=== PATIENT | male | born 1955 | race Hispanic/Latino ===

== ENCOUNTER 2017-08-18 04:27 | Observation (INO) | payer BC ==
[2017-08-18 04:48] VITALS: BMI 32.7
[2017-08-18] MEDS ORDERED: Morphine 4 mg/ml ISec IVP STA ×2 (05:10→08:26)
[2017-08-18] MEDS ORDERED: Sodium Chloride 0.9% 1,000 ML IV STA (05:12)
--- NOTE | 2017-08-18 05:49 | ED PDOC ---
Arrival/HPI - General Historian: Patient - History of Present Illness Time/Duration: 24 hours Symptom Onset: Gradual Symptom Course: Unchanged Activities at Onset: Light Context: Home <Vince Garcia - Last Filed: 08/18/17 06:20> <Jim Sneed - Last Filed: 08/18/17 08:47> - General Chief Complaint: Abdominal Pain Time Seen by Provider: 08/18/17 05:06 - History of Present Illness Narrative History of Present Illness (Text): 08/18/17 05:40 62 year old male, whose past medical history includes pacemaker, hypertension, diabetes, hyperlipidemia, prostate cancer, recurrent pacemaker, and left kidney tumor removal, presents to the emergency department complaining of worsening back pain and abdominal pain. Patient reports he went to see Dr. Motta yesterday after having both back pain and abdominal pain. He was given a prescription for a CT of the abdomen to r/o obstruction. Patient also reports he has not been passing any flatulence. Patient denies any fever, chills, chest pain, shortness of breath, nausea, vomiting, diarrhea, urinary symptoms, back pain, neck pain, headache, dizziness, trauma/injury, suicidal/homicidal ideation or any other complaints. PMD: Dr. Motta Urologist: Dr. Wolfe (Vince Garcia) Past Medical History - Provider Review Nursing Documentation Reviewed: Yes - Cardiac Hx Cardiac Disorders: No Hx Pacemaker: Yes (2011) - Pulmonary Hx Respiratory Disorders: No - Neurological Hx Neurological Disorder: No - HEENT Hx HEENT Disorder: No - Renal Hx Renal Disorder: No - Endocrine/Metabolic Hx Diabetes Mellitus Type 2: Yes - Hematological/Oncological Hx Blood Disorders: No - Integumentary Hx Dermatological Disorder: No - Musculoskeletal/Rheumatological Hx Musculoskeletal Disorders: No - Gastrointestinal Hx Gastrointestinal Disorders: No - Genitourinary/Gynecological Hx Prostate Cancer: Yes - Psychiatric Hx Anxiety: Yes Hx Substance Use: No - Surgical History Hx Open Heart Surgery: Yes (pacemaker 2011) Hx Orthopedic Surgery: Yes (broken rt arm) Other/Comment: tumor left kidney <Vince Garcia - Last Filed: 08/18/17 06:20> Family/Social History - Physician Review Nursing Documentation Reviewed: Yes Family/Social History: No Known Family HX Smoking Status: Never Smoked Hx Alcohol Use: No Hx Substance Use: No <Vince Garcia - Last Filed: 08/18/17 06:20> Allergies/Home Meds <RadhaVince - Last Filed: 08/18/17 06:20> <Jim Sneed - Last Filed: 08/18/17 08:47> Allergies/Adverse Reactions: Allergies Penicillins Allergy (Verified 08/18/17 04:47) ANAPHYLAXIS Home Medications: Home Meds Medication Instructions Recorded Confirmed Aspirin [Ecotrin] 81 mg PO DAILY 08/18/17 08/18/17 Bisoprolol/HCTZ [Ziac 5 MG-6.25 MG] 1 tab PO DAILY 08/18/17 08/18/17 Hydrochlorothiazide [Microzide] 25 mg PO DAILY 08/18/17 08/18/17 Lisinopril [Zestril] 40 mg PO DAILY 08/18/17 08/18/17 Metformin HCl [Glucophage] 500 mg PO BID 08/18/17 08/18/17 Pantoprazole Sodium [Protonix] 40 mg PO DAILY 08/18/17 08/18/17 Review of Systems - Physician Review All systems were reviewed & negative as marked: Yes - Review of Systems Constitutional: absent: Fevers, Other (Chills) Respiratory: absent: SOB Cardiovascular: absent: Chest Pain Gastrointestinal: Abdominal Pain, Other (not passing any flatulence ). absent: Diarrhea, Nausea, Vomiting Genitourinary Male: absent: Dysuria, Frequency, Hematuria Musculoskeletal: Back Pain Neurological: absent: Headache, Dizziness <RadhaVince - Last Filed: 08/18/17 06:20> Physical Exam Vital Signs Reviewed: Yes Temperature: Afebrile Blood Pressure: Hypertensive Pulse: Regular Respiratory Rate: Normal Appearance: Positive for: Well-Appearing, Non-Toxic, Comfortable Pain Distress: None Mental Status: Positive for: Alert and Oriented X 3 - Systems Exam Head: Present: Atraumatic, Normocephalic Pupils: Present: PERRL Extroacular Muscles: Present: EOMI Conjunctiva: Present: Normal Mouth: Present: Moist Mucous Membranes Neck: Present: Normal Range of Motion Respiratory/Chest: Present: Clear to Auscultation, Good Air Exchange. No: Respiratory Distress, Accessory Muscle Use Cardiovascular: Present: Regular Rate and Rhythm, Normal S1, S2. No: Murmurs Abdomen: Present: Tenderness (Diffusely tender), Distention (Minimal ), Other ( Abdominal Bruites). No: Peritoneal Signs, Mass/Organomegaly Back: Present: Normal Inspection Upper Extremity: Present: Normal Inspection. No: Cyanosis, Edema Lower Extremity: Present: Normal Inspection, NORMAL PULSES (Signs of femoral pulses both sides). No: Edema Neurological: Present: GCS=15, CN II-XII Intact, Speech Normal Skin: Present: Warm, Dry, Normal Color. No: Rashes Psychiatric: Present: Alert, Oriented x 3, Normal Insight, Normal Concentration <Vince Garcia - Last Filed: 08/18/17 06:20> Vital Signs Temp Pulse Resp BP Pulse Ox 08/18/17 07:54 65 18 146/85 99 08/18/17 05:37 98.7 F 08/18/17 04:54 65 24 180/105 H 100 Medical Decision Making - Lab Interpretations I have reviewed the lab results: Yes - EKG Interpretation Interpreted by ED Physician: Yes Type: 12 lead EKG <Vince Garcia - Last Filed: 08/18/17 06:20> <Jim Sneed - Last Filed: 08/18/17 08:47> ED Course and Treatment: 08/18/17 05:50 Impression: 62 year old male presents complaining of worsening back pain and abdominal pain associated with no flatulence. Differential Diagnosis included but are not limited to: AAA Plan: -- CT Angio Chest/abdomen -- EKG -- Labs -- Morphine, IV Fluids, Toradol, Zofran inj -- Urine Culture -- Urinalysis -- Reassess and disposition Progress Notes: 08/18/17 05:55 EKG shows Pacemaker at 65 BPM with Normal axis. Normal Intervals. Normal EKG. Interpreted by me. (Vince Garcia) 08/18/17 07:43 Turned over to me by waiting for CT scan. Patient reports that he was awoken from sleep at approximately 2 AM 30 hours ago with severe back pain. The pain radiated into his left groin. He is no longer having back pain. He states the pain is now in his abdomen. He was seen by the PMD and given a CT scan prescription. Patient appears to have left sided renal colic. Waiting for urine and CT results. CT Angiography Abdomen and Pelvis With Intravenous Contrast IMPRESSION: Mild to moderate left hydronephrosis. There is a 15 mm stone in the renal pelvis at the UPJ. There is left renal cortical scarring. Correlate with prior studies. Dictated and Authenticated by: Sammy Catalan MD 08/18/2017 8:03 AM Eastern Time ([place] & [place]) CT Angiography Chest With Intravenous Contrast IMPRESSION: No acute findings. Dictated and Authenticated by: Sammy Catalan MD 08/18/2017 8:03 AM Eastern Time ([place] & [place]) 08/18/17 08:[address] Juan Motta, who agree and accepts patient to be admitted and wants Dr. Wolfe on consult. 08/18/17 08:46 Discussed with , who will see in consult. (Jim Sneed) - Lab Interpretations Lab Results: 08/18/17 05:00 08/18/17 05:00 Lab Results 08/18/17 08:13: Urine Color Yellow, Urine Appearance Turbid, Urine pH 5.5, Ur Specific Alexander 1.010, Urine Protein 30 H, Urine Glucose (UA) Negative, Urine Ketones Negative, Urine Blood Large H, Urine Nitrate Negative, Urine Bilirubin Negative, Urine Urobilinogen 0.2, Ur Leukocyte Esterase Negative, Urine RBC Tntc , Urine WBC 5 - 10, Ur Epithelial Cells 4 - 5, Urine Bacteria Mod 08/18/17 05:00: Sodium 142, Potassium 4.0, Chloride 100, Carbon Dioxide 29, Anion Gap 17, BUN 30 H, Creatinine 1.1, Est GFR ( Amer) > 60, Est GFR ( Non-Af Amer) > 60, Random Glucose 193 H, Calcium 10.0, Total Bilirubin 0.7, AST 29, ALT 41, Alkaline Phosphatase 91, Lactate Dehydrogenase 511, Total Creatine Kinase 45, Troponin I 0.01, Total Protein 7.8, Albumin 4.3, Globulin 3.5, Albumin/Globulin Ratio 1.2 08/18/17 05:00: PT 11.7, INR 1.02 08/18/17 05:00: WBC 10.7, RBC 4.56, Hgb 13.9 L, Hct 39.4 L, MCV 86.4, MCH 30.5, MCHC 35.3, RDW 12.9, Plt Count 185, MPV 10.8, Gran % 81.2 H, Lymph % (Auto) 13.7 L, [place] % (Auto) 3.7, Eos % (Auto) 1.3 L, Baso % (Auto) 0.1, Gran # 8.68 H , Lymph # (Auto) 1.5, [place] # (Auto) 0.4, Eos # (Auto) 0.1, Baso # (Auto) 0.01 - RAD Interpretation Radiology Orders: 08/18/17 05:08 ANGIO CHEST/ABDOMEN/PELVIS [CT] Stat - Medication Orders Current Medication Orders: Discontinued Medications Sodium Chloride (Sodium Chloride 0.9%) 1,000 mls @ 999 mls/hr IV .Q1H1M STA Stop: 08/18/17 06:12 Last Admin: 08/18/17 05:00 Dose: 999 mls/hr eMAR Start Stop Document 08/18/17 05:00 RD (Rec: 08/18/17 05:25 RD [id number]) Intravenous Solution Start Date 08/18/17 Start Time 05:00 End Date 08/18/17 End time 06:00 Total Infusion Time 60 Ketorolac Tromethamine (Toradol) 30 mg IVP STAT STA Stop: 08/18/17 05:11 Last Admin: 08/18/17 05:22 Dose: 30 mg MAR Pain Assessment Document 08/18/17 05:22 RD (Rec: 08/18/17 05:26 RD [id number]) Pain Reassessment Is this a pain reassessment? No Sleep Is patient sleeping during reassessment? No Presence of Pain Presence of Pain Yes Description Pain Behavior Moaning Guarding Irritability Facial Grimacing IVP Administration Document 08/18/17 05:22 RD (Rec: 08/18/17 05:26 RD [id number]) Charges for Administration # of IVP Administrations 1 Morphine Sulfate (Morphine) 4 mg IVP STAT STA Stop: 08/18/17 05:11 Last Admin: 08/18/17 05:26 Dose: 4 mg MAR Pain Assessment Document 08/18/17 05:26 RD (Rec: 08/18/17 05:26 RD [id number]) Pain Reassessment Is this a pain reassessment? No Sleep Is patient sleeping during reassessment? No Presence of Pain Presence of Pain Yes Description Pain Behavior Moaning Crying Irritability Facial Grimacing IVP Administration Document 08/18/17 05:26 RD (Rec: 08/18/17 05:26 RD [id number]) Charges for Administration # of IVP Administrations 1 Morphine Sulfate (Morphine) 4 mg IVP STAT STA Stop: 08/18/17 08:27 Ondansetron HCl (Zofran Inj) 4 mg IVP STAT STA Stop: 08/18/17 05:11 Last Admin: 08/18/17 05:10 Dose: 4 mg IVP Administration Document 08/18/17 05:10 RD (Rec: 08/18/17 05:25 RD [id number]) Charges for Administration # of IVP Administrations 1 Ondansetron HCl (Zofran Inj) 4 mg IVP ONCE ONE Stop: 08/18/17 08:27 - Scribe Statement The provider has reviewed the documentation as recorded by the Scribe <Vince Garcia - Last Filed: 08/18/17 06:20> <Jim Sneed - Last Filed: 08/18/17 08:47> - Scribe Statement Rip Avalos Provider Scribe Attestation: All medical record entries made by the Scribe were at my direction and personally dictated by me. I have reviewed the chart and agree that the record accurately reflects my personal performance of the history, physical exam, medical decision making, and the department course for this patient. I have also personally directed, reviewed, and agree with the discharge instructions and disposition. (Vince Garcia) Disposition/Present on Arrival - Present on Arrival History of DVT/PE: No History of Uncontrolled Diabetes: No Urinary Catheter: No History of Decub. Ulcer: No History Surgical Site Infection Following: None <Vince Garcia - Last Filed: 08/18/17 06:20> - Present on Arrival Any Indicators Present on Arrival: No History of DVT/PE: No History of Uncontrolled Diabetes: No Urinary Catheter: No History of Decub. Ulcer: No - Disposition Have Diagnosis and Disposition been Completed?: Yes Disposition Time: 08:25 Patient Plan: Observation <Jim Sneed - Last Filed: 08/18/17 08:47> - Disposition Diagnosis: Nephrolithiasis, Hydronephrosis, Renal colic on left side Disposition: HOSPITALIZED Patient Problems: Current Active Problems Problem Status Onset Hydronephrosis Acute Nephrolithiasis Acute Renal colic on left side Acute Condition: FAIR
[2017-08-18 06:03] LABS: BASO # 0.01 K/mm3 (0.0-2.0); BASO % 0.1 % (0.0-3.0); EOS # 0.1 (0.0-0.7); EOS % 1.3 % (1.5-5.0); GRAN # 8.68 (1.4-6.5); GRAN % 81.2 % (50.0-68.0); HEMOGLOBIN 13.9 g/dL (14.0-18.0); LYMPH # 1.5 (1.2-3.4); LYMPH % 13.7 % (22.0-35.0); MEAN CELL VOLUME 86.4 fl (80.0-105.0); MEAN CORPUSCULAR HEMOGLOBIN 30.5 pg (25.0-35.0); MEAN CORPUSCULAR HGB CONC 35.3 g/dl (31.0-37.0); MEAN PLATELET VOLUME 10.8 fl (7.0-11.0); MONO # 0.4 (0.1-0.6); MONO % 3.7 % (1.0-6.0); RBC 4.56 10^6/uL (3.5-6.1); RED CELL DISTRIBUTION WIDTH 12.9 % (11.5-14.5); WHITE BLOOD COUNT 10.7 10^3/ul (4.5-11.0)
[2017-08-18 06:06] LABS: ALB/GLOB RATIO 1.2 (1.1-1.8); ALBUMIN 4.3 g/dL (3.0-4.8); ALT/SGPT 41 U/L (7-56); AST/SGOT 29 U/L (17-59); BLOOD UREA NITROGEN 30 mg/dL (7-21); GFR AFRICAN-AMERICAN > 60; GFR NON-AFRICAN AMERICAN > 60
[2017-08-18 06:13] LABS: INR 1.02 (0.93-1.08); PROTHROMBIN TIME 11.7 SECONDS (9.4-12.5)
[2017-08-18 06:24] LABS: TROPONIN I 0.01 ng/mL
[2017-08-18 08:24] LABS: PH,URINE 5.5 (4.7-8.0); URINE BILIRUBIN NEGATIVE (NEGATIVE); URINE BLOOD LARGE (NEGATIVE); URINE GLUCOSE (UA) NEGATIVE (NEGATIVE); URINE LEUKOCYTE ESTERASE NEGATIVE Leu/uL (NEGATIVE); URINE PROTEIN 30 mg/dL (<30 mg/dL); URINE UROBILINOGEN 0.2 E.U./dL (<1 E.U./dL)
[2017-08-18 08:27] LABS: URINE APPEARANCE TURBID (CLEAR); URINE COLOR YELLOW (YELLOW)
[2017-08-18 08:38] LABS: URINE RBC TNTC /hpf (0-2)
[2017-08-18 08:39] LABS: URINE BACTERIA MOD (NEG)
--- NOTE | 2017-08-18 09:44 | CT ---
PROCEDURE: CT Chest, Abdomen and Pelvis with intravenous contrast HISTORY: Abdominal Aortic Aneurysm COMPARISON: 07/19/2015 TECHNIQUE: IV dose administered: 150 cc of Omni 350 Radiation dose: Total exam DLP = 1629 mGy-cm. This CT exam was performed using one or more of the following dose reduction techniques: Automated exposure control, adjustment of the mA and/or kV according to patient size, and/or use of iterative reconstruction technique. FINDINGS: CT CHEST WITH CONTRAST: LUNGS: Clear. No nodule, mass or consolidation. MEDIASTINUM: Unremarkable. Normal caliber aorta and pulmonary arterial trunk. No aortic dissection. Normal size heart. LYMPH NODES: Unremarkable. PLEURA: Unremarkable. No pneumothorax. No pleural fluid. BONES: Unremarkable. OTHER FINDINGS: None. CT ABDOMEN AND PELVIS: LIVER: Unremarkable. No gross lesion or ductal dilatation. GALLBLADDER AND BILE DUCTS: Unremarkable. PANCREAS: Unremarkable. No gross lesion or ductal dilatation. SPLEEN: Unremarkable. ADRENALS: Unremarkable. No mass. KIDNEYS AND URETERS: There is a large 13 x 15 mm stone in the left renal pelvis producing obstruction at the UPJ. There is mild hydronephrosis. This stone was previously seen in the lower pole of the left kidney and has now migrated. VASCULATURE: Unremarkable. No aortic aneurysm. BOWEL: Unremarkable. No obstruction. No gross mural thickening. APPENDIX: Normal appendix. PERITONEUM: Unremarkable. No free fluid. No free air. LYMPH NODES: Unremarkable. No enlarged lymph nodes. BLADDER: Unremarkable. REPRODUCTIVE: Unremarkable. BONES: No acute fracture. OTHER FINDINGS: None. IMPRESSION: There is a large 13 x 15 mm stone in the left renal pelvis producing obstruction at the UPJ. There is mild hydronephrosis. This stone was previously seen in the lower pole of the left kidney and has now migrated.
--- NOTE | 2017-08-18 10:40 | HP ---
HISTORY OF PRESENT ILLNESS: The patient is a 62 year old man a past medical history of prostate cancer s/p radiation therapy s/p hormonal therapy, history of renal cell carcinoma s/p left partial nephrectomy and BPH who presented for evaluation of a several day history of progressively worsening lower abdominal discomfort and left renal colic. The patient was evaluated in his PMD's office the day prior to presentation to the ED for the aforementioned symptoms and was given a prescription for a CT of the abdomen and pelvis. The patient was planning to go the following day but given worsening symptoms he presented to the ED. Upon arrival to the ED he was noted to be in moderate distress secondary to left flank pain but was otherwise afebrile and hemodynamically stable. He underwent a CT of the abdomen and pelvis which demonstrated mild to moderate left hydronephrosis with a 15 mm stone in the renal pelvis at the UPJ. Given the size of the stone he was advised that he would likely require a urologic intervention and was subsequently admitted for management of nephrolithiasis. PAST MEDICAL HISTORY: As per HPI, also, hypertension, hyperlipidemia, T2DM, GERD and sick sinus syndrome s/p pacemaker placement. PAST SURGICAL HISTORY: As per HPI. MEDICATIONS: Bisoprolol/HCTZ 10/6.25 mg p.o. daily, HCTZ 25 mg p.o. daily, Lisinopril 40 mg p.o. daily, Protonix 40 mg p.o. daily, Aspirin 81 mg p.o. daily and Metformin 500 mg p.o. b.i.d. ALLERGIES: PENICILLIN. FAMILY HISTORY: Noncontributory. SOCIAL HISTORY: The patient denies any history of smoking or illicit drug abuse. He reports social alcohol use. REVIEW OF SYSTEMS: A 14-point review of systems is negative except as per HPI. PHYSICAL EXAMINATION: VITAL SIGNS: Temperature 98.7, pulse 66, blood pressure 120/77, respiratory rate 18, oxygen saturation 98% on room air. GENERAL: Mild distress secondary to left flank pain. HEENT: PERRL, EOMI. No scleral icterus. No conjunctival pallor. NECK: Supple. Full range of motion. No JVD. No bruits. LUNGS: Clear to auscultation. CARDIOVASCULAR: Regular rate and rhythm. Normal S1 and S2. ABDOMEN: Normoactive bowel sounds. Soft, nontender and nondistended. Left flank pain is noted. EXTREMITIES: No edema. NEUROLOGIC: Awake, alert and oriented x 3. No focal motor deficits. LABORATORY DATA: WBC 10.7, hemoglobin 14, hematocrit 39, platelets 185. Chemistry reviewed and unremarkable. Urinalysis demonstrates large blood. IMAGING STUDIES: CT of the abdomen and pelvis demonstrates mild to moderate left hydronephrosis with a 15 mm stone in the renal pelvis at the UPJ. ASSESSMENT: The patient is a 62 year old man with multiple medical comorbidities who presented for evaluation of a several day history of progressively worsening lower abdominal and left flank pain who was found to have a 15 mm left-sided kidney stone and who was admitted for management of nephrolithiasis. PLAN: 1. Nephrolithiasis. CT imaging reviewed. Dr. Wolfe of Urology has been consulted for further evaluation and recommendations. Continue with Morphine 4 mg IV q. 6 hours as needed for pain and Zofran 4 mg IV q. 8 hours p.r.n. nausea. 2. Hypertension. Resume home medications. 3. Hyperlipidemia. The patient is off statins and is diet controlled. 4. Type 2 diabetes mellitus. Resume Metformin 500 mg p.o. b.i.d. Continue to monitor fingersticks before every meal and at bedtime. 5. Sick sinus syndrome s/p pacemaker placement. 6. GERD. Resume Protonix 40 mg p.o. daily. 7. History of prostate cancer. 8. History of renal cell carcinoma. 9. Prophylaxis. The patient is on Protonix for his underlying GERD. DVT prophylaxis is not indicated as the patient is ambulatory. CODE STATUS: Full code. Juan Motta MD MARTHA
[2017-08-18] MEDS: Pantoprazole 40 mg EC Tab PO SCH (11:12)
[2017-08-18] MEDS ORDERED: Pneumococcal 23-Valent Vaccine IM ONE (13:54)
[2017-08-18] MEDS: Morphine 4 mg/ml ISec IVP PRN (16:39)
--- NOTE | 2017-08-18 19:22 | CARD ---
APPROVED REPORT EKG Measurement Heart [id number] <Conclusion> Electronic ventricular pacemaker
[2017-08-19 07:13] LABS: BASO # 0.02 K/mm3 (0.0-2.0); BASO % 0.2 % (0.0-3.0); EOS # 0.3 (0.0-0.7); EOS % 3.1 % (1.5-5.0); GRAN # 5.24 (1.4-6.5); GRAN % 62.9 % (50.0-68.0); HEMOGLOBIN 12.1 g/dL (14.0-18.0); LYMPH % 24.3 % (22.0-35.0); MEAN CORPUSCULAR HEMOGLOBIN 29.7 pg (25.0-35.0); MEAN CORPUSCULAR HGB CONC 34.1 g/dl (31.0-37.0); MEAN PLATELET VOLUME 10.4 fl (7.0-11.0); MONO # 0.8 (0.1-0.6); MONO % 9.5 % (1.0-6.0); RBC 4.08 10^6/uL (3.5-6.1); WHITE BLOOD COUNT 8.3 10^3/ul (4.5-11.0)
[2017-08-19 07:18] LABS: ALB/GLOB RATIO 1.2 (1.1-1.8); ALBUMIN 3.5 g/dL (3.0-4.8)
[2017-08-19] MEDS ORDERED: Iohexol 240 (50 ml) ONE (07:56)
[2017-08-19] MEDS ORDERED: cefTRIAXone (Rocephin) 1 gm Inj ONE (07:56)
[2017-08-19] MEDS ORDERED: Lidocaine 2% Jelly (Uro-Jet) ONE (07:56)
[2017-08-19] MEDS ORDERED: Gentamicin 80 mg/2mL Inj. ONE (07:58)
[2017-08-19] MEDS ORDERED: Propofol 10 mg/ml Inj (20 ML) ONE (08:12)
[2017-08-19] MEDS ORDERED: Midazolam 2 MG/2 ML VIAL ONE (08:12)
--- NOTE | 2017-08-19 08:36 | CON ---
DATE: 08/18/2017 GENITOURINARY CONSULTATION CHIEF COMPLAINT: Left flank pain. HISTORY OF PRESENT ILLNESS: This is a 62-year-old male who is well known to me. The patient has a history of a left renal cell carcinoma, treated many years ago with a laparoscopic renal cryoablation. The patient has a history of prostate cancer, initially treated with IMRT many years ago. Recently the patient had a biochemical recurrence and has been treated with hormonal therapy with good results. The patient also has a history of coronary artery disease. He had a coronary event in which he needed to be resuscitated at [facility] and had a subsequent pacemaker placed. The patient reports few days' history of some left flank pain which has gotten progressively worse. He does report some nausea, although no vomiting. He denies any dysuria, urinary frequency, or gross hematuria. He denies any fevers or chills. He had a CT scan done, which showed a 15-mm stone in the left renal pelvis. There is some mild fullness. PAST MEDICAL HISTORY: Significant for hypertension, hyperlipidemia, type 2 diabetes, reflux, and sick sinus syndrome. MEDICATIONS: Include bisoprolol/hydrochlorothiazide, lisinopril, Protonix, aspirin, and metformin. ALLERGIES: ALLERGIC TO PENICILLIN. FAMILY HISTORY: Noncontributory. SOCIAL HISTORY: No current smoking or EtOH use. REVIEW OF SYSTEMS: The patient is complaining of left flank pain, some nausea, and hot flashes from hormonal therapy. Other systems are negative. PHYSICAL EXAMINATION: GENERAL: The patient is awake and alert. He is in no acute distress. He is answering questions appropriately. VITAL SIGNS: He is afebrile, temperature of 98.7 with a pulse of 74, BP 131/72, respirations 18. NECK: Supple. There is no adenopathy. CHEST: Reveals normal inspiratory effort. CARDIAC: Shows positive S1 and S2. There is no peripheral edema noted. ABDOMEN: Soft, nontender, nondistended. There is no hepatosplenomegaly. There is no current CVA tenderness. GENITOURINARY: Phallus is normal. Scrotum is normal. Testes bilaterally descended, nontender, no masses. Epididymis are normal. EXTREMITIES: There is no cyanosis or edema noted. LABORATORY DATA: WBC count 10.7. GFR greater than 60. Urinalysis showed too numerous to count rbc's, 5 to 10 wbc's, negative for nitrites. RADIOLOGIC DATA: The patient had a CT scan of the abdomen and pelvis, which showed there was a large 1.5-cm stone in the left renal pelvis. There is mild fullness of the left collecting system. Right kidney was normal. IMPRESSION AND PLAN: This is a 62-year-old male with history of prostate carcinoma, renal cell carcinoma, sick sinus syndrome with a left renal pelvic stone. The stone appears too large to pass spontaneously. The patient is currently without pain; however, I would recommend the patient to be kept n.p.o. after midnight tonight. I have scheduled him for a cystoscopy with stent placement. The patient will likely need an outpatient shockwave lithotripsy to fragment the stone. We will see if the stone is radiographically opaque on fluoroscopy. I will start the patient on oral antibiotics and he can have clear liquids for now and will be kept n.p.o. after midnight tonight. Thank you for allowing me to participate in the care of this patient. We will follow him with you. Raymon Wolfe MD
[2017-08-19] MEDS ORDERED: HYDROmorphone 0.5 mg/0.5 ml ISec IVP PRN (08:58)
[2017-08-19] MEDS ORDERED: Lactated Ringer's 1,000 ML IV SCH (09:00)
--- NOTE | 2017-08-19 09:17 | PN ---
SUBJECTIVE: The patient was seen and examined at the bedside on the general medical arora. He is being taken to the OR for urologic intervention with Dr. Wolfe for cystoscopy with left ureteral stent secondary to his admission for left sided nephrolithiasis with mild to moderate hydronephrosis. OBJECTIVE: VITAL SIGNS: Temperature 98.7, pulse 64, blood pressure 152/88, respiratory rate 20, oxygen saturation 95% on room air. GENERAL: No apparent distress. HEENT: PERRL. EOMI. No scleral icterus. No conjunctival pallor. NECK: Supple. Full range of motion. No JVD. No bruits. LUNGS: Clear to auscultation. CARDIOVASCULAR: Regular rate and rhythm. Normal S1 and S2. ABDOMEN: Normoactive bowel sounds. Soft, nontender and nondistended. EXTREMITIES: No edema. NEUROLOGIC: Awake, alert and oriented x3. No focal motor deficits. LABORATORY DATA: CBC reviewed and unremarkable. CMP reviewed and unremarkable with the exception of BUN 33, creatinine 1.8. PSA 7.1. ASSESSMENT: The patient is a 62 year old man with multiple medical comorbidities who presented for evaluation of a several day history of progressively worsening lower abdominal and left flank pain and was found to have a 15 mm left sided kidney stone and was admitted for management of nephrolithiasis who is pending cystoscopy with left sided ureteral stent placement. PLAN: 1. Nephrolithiasis. Input from Dr. Wolfe greatly appreciated and the patient is being taken to the OR for cystoscopy with left ureteral stent placement. Continue with postoperative care as per Dr. Wolfe. Continue Morphine 4 mg IV q. 6 hours p.r.n. pain and Zofran 4 mg IV q. 6 hours p.r.n. nausea. 2. Hypertension. Continue HCTZ 25 mg p.o. daily and Lisinopril 40 mg p.o. daily. 3. Acute kidney injury. Labs demonstrate an acute rise in the patient's creatinine which represent an obstructive uropathy. He is being taken to the OR for cystoscopy with ureteral stent placement which may resolve his MARIA ELENA. We will continue to monitor renal function daily. We will monitor strict I & O's. 4. Hyperlipidemia. Continue Lipitor 10 mg p.o. daily. 5. Type 2 diabetes mellitus. Continue Metformin 500 mg p.o. b.i.d. Continue to monitor fingersticks before every meal and at bedtime. 6. Sick sinus syndrome s/p pacemaker placement. 7. GERD. Continue Protonix 40 mg p.o. daily. 8. History of prostate cancer s/p radiation therapy and hormonal therapy. Labs demonstrate an elevated PSA of 7.1. The patient will be encouraged to follow up with Dr. Wolfe upon discharge. 9. History of renal cell carcinoma s/p cryoablation. 10. Prophylaxis. The patient is on Protonix for his underlying GERD. DVT prophylaxis is not indicated as the patient is ambulatory. CODE STATUS: Full code. Juan Motta MD MTDVivian
--- NOTE | 2017-08-19 09:22 | RAD ---
PROCEDURE: Retrograde pyelogram HISTORY: INSERTION STENT COMPARISON: TECHNIQUE: Fluoroscopy was provided in the operating room. 25.2 seconds of fluoro time. 10.58 mGy cumulative dose. Four images were submitted FINDINGS: There is placement of a left ureteral stent IMPRESSION: As above
[2017-08-19] MEDS ORDERED: HYDROmorphone 0.5 mg/0.5 ml ISec ONE (09:58)
[2017-08-19] MEDS: Morphine 4 mg/ml ISec IVP PRN ×2 (10:34→17:02)
[2017-08-19] MEDS: Pantoprazole 40 mg EC Tab PO SCH (10:34)
[2017-08-19 15:47] VITALS: RESP 20; O2SAT 98
--- NOTE | 2017-08-19 16:18 | PROCN ---
PROCEDURE DATE: 08/19/2017 PREOPERATIVE DIAGNOSES: Left renal pelvic calculus, renal colic. POSTOPERATIVE DIAGNOSES: Left renal pelvic calculus, renal colic. PROCEDURES: Cystoscopy, left retrograde pyelogram, insertion of a left ureteral stent. ATTENDING SURGEON: Raymon Wolfe MD ANESTHESIA: General. SPECIMENS: There were none. DRAINS: 6 x 26 left ureteral stent. COMPLICATIONS: There were none. OPERATIVE FINDINGS: After informed consent was obtained, the patient was taken to the operating room and placed on the operating table. Anesthesia was administered. The patient was placed in a dorsal lithotomy position, and prepped and draped in the usual sterile fashion. A 22-Sinhala cystoscope was placed in the patient's urethra and advanced proximally under direct vision until the bladder was entered. A full survey inspection of bladder was then performed, which revealed no stones, tumors, or foreign bodies of the bladder. Both ureteral orifices were visualized and appeared within normal limits. At this point, an open-ended ureteral catheter was advanced through the cystoscope and guided into the left ureteral orifice. A left retrograde pyelogram was then performed by instilling contrast through the open-ended ureteral catheter into the left ureter during real-time fluoroscopy. On plain film, there appeared to be a large calcific density in the area of the left kidney. On retrograde pyelogram, this density was corresponding to a large stone in the left renal pelvis seen on CT scan. There was some mild dilatation of the collecting system behind the stone and pelvis. There was some apparent pyelovenous backflow. At this point, a sensor wire was passed through the open-ended ureteral catheter and advanced up the ureter under fluoroscopic guidance. The wire was able to be passed beyond the stone and coiled in the upper collecting system. At this point, the open-ended ureteral catheter was removed. A 6 x 26 ureteral stent was obtained. It was passed over the wire through the cystoscope and into the left ureteral orifice. The stent was then advanced proximally under direct and fluoroscopic guidance. When the stent was in proper position, the guidewire was removed. A coil was seen in the upper collecting system initially and then the coil was moved down to the renal pelvis. A coil was seen in the bladder on cystoscopy. At this point, the procedure was completed, the bladder was drained, and the cystoscope was removed. The patient tolerated procedure well and he was taken to the recovery room, awake, in stable condition. Raymon Wolfe MD
[2017-08-20 07:34] VITALS: BP 152/92; PULSE 66; TEMP 98.1
[2017-08-20 07:40] LABS: BASO # 0.01 K/mm3 (0.0-2.0); BASO % 0.1 % (0.0-3.0); EOS # 0.3 (0.0-0.7); EOS % 3.3 % (1.5-5.0); GRAN # 5.43 (1.4-6.5); GRAN % 68.2 % (50.0-68.0); HEMOGLOBIN 12.8 g/dL (14.0-18.0); LYMPH # 1.5 (1.2-3.4); LYMPH % 18.4 % (22.0-35.0); MEAN CELL VOLUME 86.4 fl (80.0-105.0); MEAN CORPUSCULAR HEMOGLOBIN 29.9 pg (25.0-35.0); MEAN CORPUSCULAR HGB CONC 34.6 g/dl (31.0-37.0); MEAN PLATELET VOLUME 10.7 fl (7.0-11.0); MONO # 0.8 (0.1-0.6); RBC 4.28 10^6/uL (3.5-6.1); RED CELL DISTRIBUTION WIDTH 12.7 % (11.5-14.5)
[2017-08-20 07:55] LABS: ALB/GLOB RATIO 1.3 (1.1-1.8); ALBUMIN 3.8 g/dL (3.0-4.8); ALT/SGPT 37 U/L (7-56); AST/SGOT 22 U/L (17-59); BLOOD UREA NITROGEN 22 mg/dL (7-21); CALCIUM 9.2 mg/dL (8.4-10.5); GFR AFRICAN-AMERICAN > 60; GFR NON-AFRICAN AMERICAN > 60
[2017-08-20] MEDS: Morphine 4 mg/ml ISec IVP PRN (07:57)
[2017-08-20] MEDS ORDERED: Magnesium Citrate Oral SOL (300 ml) PO ONE ×2 (08:09→11:15)
[2017-08-20] MEDS: Pantoprazole 40 mg EC Tab PO SCH (11:00)
[2017-08-20] MEDS ORDERED: Pneumococcal 23-Valent Vaccine IM ONE (11:13)
--- NOTE | 2017-08-20 12:36 | PN ---
SUBJECTIVE: The patient was seen and examined at bedside on the general medical arora. No acute events overnight. He is s/p left ureteral stent placement for presentation with left-sided nephrolithiasis and mild hydronephrosis. This morning he feels ok and largely offers no complaints. PHYSICAL EXAMINATION VITAL SIGNS: Temperature 98.1, pulse 66, blood pressure 152/92, respiratory rate 20, oxygen saturation 98% on room air. GENERAL: No apparent distress. HEENT: PERRL. EOMI. No scleral icterus. No conjunctival pallor. NECK: Supple with full range of motion. No JVD. No bruits. LUNGS: Clear to auscultation. CARDIOVASCULAR: Regular rate and rhythm. Normal S1 and S2. ABDOMEN: Normoactive bowel sounds. Soft, nontender, nondistended. No flank tenderness. EXTREMITIES: No edema. NEUROLOGIC: Awake, alert, and oriented x3. No focal motor deficits. LABORATORY DATA: CBC reviewed and unremarkable. CMP reviewed and demonstrates resolution of renal dysfunction with BUN 22, creatinine 1. ASSESSMENT: The patient is a 62 year old man with multiple medical comorbidities who presented for evaluation of a several day history of progressively worsening lower abdominal and left flank pain and was found to have a 15-mm left-sided kidney stone who is now s/p left ureteral stent placement. PLAN: 1. Nephrolithiasis s/p left ureteral stent placement. Input from Dr. Wolfe greatly appreciated. The patient reports significant improvement in his presenting symptoms. Continue with current analgesic and antiemetic regimen. 2. Acute kidney injury, resolved. Labs demonstrate return of renal function to baseline. 3. Hypertension. Continue HCTZ 25 mg p.o. daily and Lisinopril 40 mg p.o. daily. 4. Hyperlipidemia. Continue Lipitor 10 mg p.o. daily. 5. Type 2 diabetes mellitus. Continue Metformin 500 mg p.o. b.i.d. 6. Sick sinus syndrome s/p pacemaker placement. 7. GERD. Continue Protonix 40 mg p.o. daily. 8. History of prostate cancer s/p radiation therapy and hormonal therapy. Labs demonstrate an elevated PSA of 7.1. The patient will follow up with Dr. Wolfe upon discharge. 9. History of renal cell carcinoma s/p cryoablation. 10. Prophylaxis. The patient is on Protonix for his underlying GERD. DVT prophylaxis is not indicated as the patient is ambulatory. CODE STATUS: Full code. Juan Motta MD MTDVivian
--- NOTE | 2017-08-24 13:37 | DS ---
ADMITTING DIAGNOSIS: Left renal calculus. DISCHARGE DIAGNOSIS: Left renal calculus s/p ureteral stent placement. SECONDARY DIAGNOSES: Hypertension, hyperlipidemia, type 2 diabetes mellitus, BPH, history of prostate cancer s/p radiation therapy s/p hormonal therapy, renal cell carcinoma s/p cryoablation and GERD. CONSULTATION: Dr. Wolfe (Urology). IMAGING STUDIES: CT of the abdomen and pelvis demonstrated a 15-mm stone in the left renal pelvis producing obstruction at the UPJ with mild hydronephrosis. PROCEDURES: Retrograde pyelogram with placement of left ureteral stent. HISTORY OF PRESENT ILLNESS: The patient is a 62 year old man with a past medical history of prostate cancer s/p radiation therapy s/p hormonal therapy, history of renal cell carcinoma s/p cryoablation and BPH who presented for evaluation of a several day history of progressively worsening lower abdominal discomfort and left renal colic. The patient was evaluated in his PMD's office the day prior to presentation to the ED for the aforementioned symptoms and was given a prescription for a CT of the abdomen and pelvis. He was planning to go the following day but given his worsening symptoms, he opted for ED evaluation. Upon arrival to the ED he was found to be in moderate distress secondary to the left flank pain but was otherwise afebrile and hemodynamically stable. A CT of the abdomen and pelvis demonstrated [id number] left hydronephrosis with a 15 mm stone in the renal pelvis at the UPJ. Due to the size of the stone and his rather significant discomfort, he was advised that he will likely require urologic intervention and was subsequently admitted for management of nephrolithiasis. HOSPITAL COURSE: Upon admission to the general medical arora he was maintained on IV fluids and morphine for analgesic management. He was evaluated by Dr. Wolfe of Urology and was taken to the OR for placement of left ureteral stent. The following day labs demonstrated resolution of his acute kidney injury and reported normal urinary output. He was advised that given the size of the stone he will require followup for outpatient lithotripsy with arrangements being made by Dr. Wolfe. Given his hemodynamic stability and resolution of his pain he was deemed stable for discharge to home. CONDITION: Good, improved. DISPOSITION: Home. DISCHARGE MEDICATIONS: Metformin 500 mg p.o. b.i.d., Lipitor 10 mg p.o. daily, Lisinopril 40 mg p.o. daily, HCTZ 25 mg p.o. daily, Bisoprolol/HCTZ 10/6.25 mg p.o. daily, Aspirin 81 mg p.o. daily, Protonix 40 mg p.o. daily, Ciprofloxacin 500 mg p.o. b.i.d. (for 5 days) and Percocet 5/325 mg #20 one tablet p.o. every 6-8 hours p.r.n. pain. DISCHARGE INSTRUCTIONS: The patient was advised that if he has any recurrence of his symptoms to present to his PMD or to the nearest ED immediately. FOLLOWUP: The patient is to follow up with his PMD within 1 week of discharge. The patient is to follow up with Dr. Wolfe as scheduled. Juan Motta MD MTDVivian
== END 2017-08-20 12:49 | disposition home or self-care (01) ==
LOC: ED 04:27 → ERH 08:18 → 5RSO 10:13
PROVIDERS: ADMIT Student in an Organized Health Care Education/Training Program; ATTEND Student in an Organized Health Care Education/Training Program
DX: N13.2 Hydronephrosis with renal and ureteral calculous obstruction (principal); N13.70 Vesicoureteral-reflux, unspecified; N40.0 Benign prostatic hyperplasia without lower urinary tract symptoms; K21.9 Gastro-esophageal reflux disease without esophagitis; I25.10 Atherosclerotic heart disease of native coronary artery without angina pectoris; I10 Essential (primary) hypertension; E78.5 Hyperlipidemia, unspecified; E11.9 Type 2 diabetes mellitus without complications; Z79.82 Long term (current) use of aspirin; Z85.46 Personal history of malignant neoplasm of prostate; Z85.528 Personal history of other malignant neoplasm of kidney; Z87.442 Personal history of urinary calculi; Z90.5 Acquired absence of kidney; Z92.3 Personal history of irradiation; Z95.0 Presence of cardiac pacemaker; Z88.0 Allergy status to penicillin; N13.9 Obstructive and reflux uropathy, unspecified; N17.9 Acute kidney failure, unspecified; Z23 Encounter for immunization
CPT/HCPCS: 36415; 52005; 52332; 74174; 74175; 74420; 80053; 81001; 82550; 82948; 83615; 84153; 84484; 85025; 85610; 87086; 90732; 93005; 96361; 96374; 96375; 96376; 99284; C1758; C1769; C2625; G0009; G0378; J1170; J1580; J1885; J2250; J2270; J2405; J2704; J2765; J3010; J7040; J7120; Q9966; Q9967

== ENCOUNTER 2017-11-09 09:23 | Day surgery (SDC) | payer BC ==
[2017-11-09] MEDS ORDERED: cefTRIAXone (Rocephin) 1 gm Inj ONE (10:55)
[2017-11-09] MEDS ORDERED: Iohexol 240 (50 ml) ONE (10:56)
[2017-11-09] MEDS ORDERED: Propofol 10 mg/ml Inj (20 ML) ONE (11:51)
[2017-11-09] MEDS ORDERED: Midazolam 2 MG/2 ML VIAL ONE (11:51)
[2017-11-09] MEDS ORDERED: Ciprofloxacin 400mg/200ml D5W 0 MG/0 ML BAG IVPB ONE (11:58)
[2017-11-09] MEDS ORDERED: Gentamicin 80 mg/2mL Inj. ONE (11:58)
[2017-11-09] MEDS ORDERED: Gentamicin 80 mg/2mL Inj. IVPB ONE (12:00)
[2017-11-09] MEDS ORDERED: HYDROmorphone 0.5 mg/0.5 ml ISec IVP PRN (12:38)
[2017-11-09] MEDS ORDERED: Lidocaine 2% Jelly (Uro-Jet) ONE (12:40)
[2017-11-09] MEDS ORDERED: Lactated Ringer's 1,000 ML IV SCH (12:45)
[2017-11-09 13:34] VITALS: RESP 18; TEMP 97.5
[2017-11-09 13:38] VITALS: BMI 32.7
[2017-11-09 14:38] VITALS: BP 150/87; PULSE 66; O2SAT 97
--- NOTE | 2017-11-09 20:08 | OP ---
PROCEDURE DATE: 11/09/2017 PREOPERATIVE DIAGNOSIS: Left kidney stone. POSTOPERATIVE DIAGNOSIS: Left kidney stone. PROCEDURES: Cystoscopy, removal of left ureteral stent, and left retrograde pyelogram. ATTENDING SURGEON: Raymon Wolfe MD ANESTHESIA: General. SPECIMENS: There were none. DRAINS: There were none. COMPLICATIONS: There were none. OPERATIVE FINDINGS: After informed consent was obtained, the patient was taken to the operating room, placed on the operating table, anesthesia was administered. The patient was placed in a dorsal lithotomy position, and prepped and draped in usual sterile fashion. A 22-Tajik cystoscope was placed in the patient's urethra and advanced proximally under direct vision until the bladder was entered. A full survey inspection of the bladder was then performed, which revealed no papillary tumors. There was a stent noted exiting from the left ureteral orifice, which was mildly encrusted. There were multiple tiny calculi noted in the bladder, which appeared to be debris from the stent. Right ureteral orifice appeared within normal limits. At this point, fluoroscopy was done and it showed the stent. There was no obvious calcification noted alongside the stent. There appeared to be a density in the area of the kidney, likely in the lower pole. At this point, a grasping forceps was passed. The encrustations were broken off the stent which was then grasped and removed without difficulty. On fluoroscopy, the stent was noted to uncoil without any holdup. The stent was removed in its entirety and inspected. It was intact and removed from the operative field. The cystoscope was then repassed. Multiple encrustations which had been broken off were able to be irrigated out of the bladder. An open-ended ureteral catheter was then passed and guided into the left ureteral orifice. When inside the orifice, contrast was then instilled into the system. The calcification which was noted appeared to be a stone located in the lower pole paxton. There was mild dilatation of the left collecting system. There were no obvious defects noted in the ureter or renal pelvis. At this point, the open-ended ureteral catheter was withdrawn. On delayed views, contrast was noted to be exiting from the kidney, renal pelvis, and then into the ureter. It was noted to be traveling down the ureter without any evidence of obstruction into the bladder. On cystoscopy, contrast could be seen rapidly exiting from the orifice. Again on delayed views, contrast continued to be exiting from the left system with no evidence of obstruction. At this point, the procedure was completed. The bladder was drained. There were no remaining stones in the bladder and the cystoscope was removed. Exam of the urethra was grossly within normal limits. The patient tolerated the procedure well. He was returned to the supine position and taken to the recovery room in awake and stable condition. The patient received IV antibiotics prior to start of the procedure. Raymon Wolfe MD
== END 2017-11-09 15:00 | disposition home or self-care (01) ==
LOC: SDS 09:23
PROVIDERS: ATTEND Urology
DX: N20.0 Calculus of kidney (principal)
CPT/HCPCS: 52310; 76000; J0696; J1170; J1580; J2250; J2405; J2704; J2765; J3010; J7120 ×2; Q9966

== ENCOUNTER 2018-07-15 12:37 | Observation (INO) | payer BC, MEDICARE ==
[2018-07-15] MEDS ORDERED: Morphine 4 mg/ml ISec IVP STA (14:07)
--- NOTE | 2018-07-15 15:02 | ED PDOC ---
Arrival/HPI - General Chief Complaint: Male Genitourinary Time Seen by Provider: 07/15/18 13:19 Historian: Patient - History of Present Illness Narrative History of Present Illness (Text): 07/15/18 14:00 63 M with PMHx of kidney stones, pacemaker, hypertension, diabetes, hyperlipidemia, prostate cancer, recurrent pacemaker, and left kidney tumor removal, presents with cc of sharp left flank pain since 08:00 this morning, sent by Dr. Griffin. Pt reports the kidney stone he has is too big to pass. Patient notes he took Tylenol today, with no significant relief. Patient states that his PMD is not currently here, so he was told to present to the emergency department for further evaluation. Patient states he has had the stone since August and it was broken down a little. Patient notes he had cancer on the same kidney, but it was frozen. Patient notes he has a defibrillator. Pt denies any fevers, blood in urine, or any other complaints at this time. PMD: Will Morales ALLERGIES: Penicillin. Time/Duration: Other (Patient notes onset as 08:00 this morning) Symptom Onset: Sudden Symptom Course: Unchanged Severity Level: Moderate Activities at Onset: Light Past Medical History - Provider Review Nursing Documentation Reviewed: Yes - Cardiac Hx Pacemaker: Yes (01/2012 post [facility]) - Pulmonary Hx Respiratory Disorders: No - Neurological Hx Paralysis: No - HEENT Hx HEENT Disorder: Yes (eyeglasses) - Renal Hx Renal Disorder: No - Endocrine/Metabolic Hx Diabetes Mellitus Type 2: Yes - Hematological/Oncological Hx Blood Transfusions: Yes Hx Blood Transfusion Reaction: No - Integumentary Hx Dermatological Disorder: Yes Other/Comment: multiple scars to right wrist and forearm from r arm fx sx - Musculoskeletal/Rheumatological Hx Musculoskeletal Disorders: Yes - Gastrointestinal Hx Gastrointestinal Disorders: Yes Hx Gastroesophageal Reflux: Yes - Genitourinary/Gynecological Hx Genitourinary Disorders: Yes (frequency at night) Hx Hematuria: Yes (traces of blood in urine at times) - Psychiatric Hx Emotional Abuse: No Hx Physical Abuse: No Hx Substance Use: No - Surgical History Hx Open Heart Surgery: Yes (pacemaker 01/2012) Hx Orthopedic Surgery: Yes (broken rt arm) Other/Comment: tumor left kidney, multiple bx's of prostate - Anesthesia Hx Anesthesia: Yes Hx Anesthesia Reactions: No Hx Malignant Hyperthermia: No - Suicidal Assessment Feels Threatened In Home Enviroment: No Family/Social History - Physician Review Nursing Documentation Reviewed: Yes Family/Social History: No Known Family HX Smoking Status: Never Smoked Hx Alcohol Use: No Hx Substance Use: No Allergies/Home Meds Allergies/Adverse Reactions: Allergies Penicillins Allergy (Severe, Verified 11/05/17 11:50) ANAPHYLAXIS Home Medications: Home Meds Medication Instructions Recorded Confirmed Hydrochlorothiazide [Microzide] 25 mg PO DAILY 08/18/17 07/15/18 Lisinopril [Zestril] 40 mg PO DAILY 08/18/17 07/15/18 Metformin HCl [Glucophage] 500 mg PO BID 08/18/17 07/15/18 Pantoprazole Sodium [Protonix] 40 mg PO DAILY 08/18/17 07/15/18 Atorvastatin [Lipitor] 10 mg PO DIN 11/05/17 07/15/18 Bisoprolol/HCTZ [Ziac 10-6.25 mg] 1 tab PO DAILY 11/05/17 07/15/18 Apixaban [Eliquis] 5 mg PO Q12H 07/15/18 07/15/18 Review of Systems - Physician Review All systems were reviewed & negative as marked: Yes (All other systems negative except that noted in the HPI.) Physical Exam - Physical Exam Narrative Physical Exam (Text): Gen: VS reviewed, alert, well developed, well nourished, nontoxic, moderate distress secondary to pain. Left CVA tenderness. Eye: EOMI, PERRL Neck: no JVD, supple, no adenopathy CV: regular rate, regular rhythm, no rubs,no murmur, S1, S2 Pulm: no distress, clear to auscultation, no wheeze, no rhonchi, breath sounds equal, no rales Abd: soft, nontender, no guarding, no rebound, no rigidity Ext: no edema Skin: good color, no rash, no cyanosis Psych: responds appropriately to questions, normal affect Neuro: oriented x3, CN2-12 intact grossly, motor intact, sensation intact Vital Signs Reviewed: Yes Vital Signs Temp Pulse Resp BP Pulse Ox 07/15/18 13:50 98.2 F 96 H 18 164/91 H 98 Temperature: Afebrile Blood Pressure: Hypertensive Pulse: Tachycardic Respiratory Rate: Normal Appearance: Positive for: Well-Appearing, Non-Toxic Pain Distress: Moderate Mental Status: Positive for: Alert and Oriented X 3 Medical Decision Making ED Course and Treatment: 07/15/18 14:00 Impression: 63 M presents to the emergency department for sharp left flank pain since 08:00 this morning, Differential Diagnosis included but are not limited to: Plan: -- CT of Abdomen & Pelvis -- Labs -- Morphine -- IV fluids -- Zofran Inj -- Urine culture -- Urinalysis -- Reassess and disposition Prior Visits: Notes and results from previous visits were reviewed. Patient was last seen in the emergency department on 08/18/17 for worsening back pain and abdominal pain. Patient was hospitalized in fair condition. Progress Notes: 07/15/18 16:[address] horta. patient to be admitted for intractable pain stemming from obstructive uropathy. consult to dr. baumann urology. dr. griffin is reportedly not available until next week. 07/15/18 16:51 - RAD Interpretation Narrative RAD Interpretations (Text): CT of Abdomen & Pelvis reviewed by radiologist, shows: Dictated By: Bunny Melvin MD Dictated Date/Time: 07/15/18 16:18 Impression: There is an obstructing stone in the left renal pelvis at the junction of the ureter. This measures 5 x 8 mm. There is also a 6 x 12 mm stone in the lower pole of the left kidney. There is moderate hydronephrosis and perinephric stranding. Radiology Orders: 07/15/18 14:07 ABDOMEN & PELVIS [ABD & PELVIS W/O PO OR IV CONT] [CT] Stat Sand Mixer Machine: Radiologist - Medication Orders Current Medication Orders: Sodium Chloride (Sodium Chloride 0.9%) 1,000 mls @ 75 mls/hr IV .[id number] ADAIR Discontinued Medications Morphine Sulfate (Morphine) 6 mg IVP STAT STA Stop: 07/15/18 14:08 Ondansetron HCl (Zofran Inj) 4 mg IVP STAT STA Stop: 07/15/18 14:08 Procedures - Time-Out Type of Procedure: venipuncture necessitating physician skill Correct Patient (with visual ID + MR# on ID Band): Yes Correct Procedure: Yes Correct Site Marked: Yes (a 20 g IV was placed in the left AC, blood drawn, good flush, secured, US guided, toelrated procedure well) Physician Name: Luiz Hernandez Statement The provider has reviewed the documentation as recorded by the Julianibe Britta Payne All medical record entries made by the Julianibjose were at my direction and personally dictated by me. I have reviewed the chart and agree that the record accurately reflects my personal performance of the history, physical exam, medical decision making, and the department course for this patient. I have also personally directed, reviewed, and agree with the discharge instructions and disposition. Disposition/Present on Arrival - Present on Arrival Any Indicators Present on Arrival: No History of DVT/PE: No History of Uncontrolled Diabetes: No Urinary Catheter: No History of Decub. Ulcer: No History Surgical Site Infection Following: None - Disposition Have Diagnosis and Disposition been Completed?: Yes Diagnosis: Obstructive uropathy Disposition: HOSPITALIZED Disposition Time: 16:54 Patient Plan: Admission Patient Problems: Current Active Problems Problem Status Onset Obstructive uropathy Acute Condition: STABLE
[2018-07-15] MEDS: Sodium Chloride 0.9% 1,000 ML IV SCH (15:05)
[2018-07-15] MEDS ORDERED: Morphine 4 mg/ml ISec IM STA (15:06)
[2018-07-15 15:25] LABS: BASO # 0.01 K/mm3 (0.0-2.0); BASO % 0.1 % (0.0-3.0); EOS % 0.3 % (1.5-5.0); HEMOGLOBIN 12.6 g/dL (14.0-18.0); LYMPH % 8.2 % (22.0-35.0); MEAN CORPUSCULAR HEMOGLOBIN 29.2 pg (25.0-35.0); MEAN CORPUSCULAR HGB CONC 33.5 g/dl (31.0-37.0); MEAN PLATELET VOLUME 10.2 fl (7.0-11.0); MONO # 0.2 (0.1-0.6); RBC 4.32 10^6/uL (3.5-6.1); WHITE BLOOD COUNT 11.6 10^3/uL (4.5-11.0)
[2018-07-15 15:42] LABS: ALB/GLOB RATIO 1.2 (1.1-1.8); ALBUMIN 4.4 g/dL (3.0-4.8); ALT/SGPT 21 U/L (7-56); AST/SGOT 32 U/L (17-59); BLOOD UREA NITROGEN 28 mg/dL (7-21); CALCIUM 9.6 mg/dL (8.4-10.5); GFR NON-AFRICAN AMERICAN > 60
--- NOTE | 2018-07-15 16:21 | CT ---
Date of service: 07/15/2018 PROCEDURE: CT Abdomen and Pelvis without intravenous contrast HISTORY: left flank pain COMPARISON: None. TECHNIQUE: Without contrast. Contrast dose: Radiation dose: Total exam DLP = 945.19 mGy-cm. This CT exam was performed using one or more of the following dose reduction techniques: Automated exposure control, adjustment of the mA and/or kV according to patient size, and/or use of iterative reconstruction technique. FINDINGS: LOWER THORAX: Unremarkable. LIVER: Unremarkable. No gross lesion or ductal dilatation. GALLBLADDER AND BILE DUCTS: Unremarkable. PANCREAS: Unremarkable. No gross lesion or ductal dilatation. SPLEEN: Unremarkable. ADRENALS: Unremarkable. No mass. KIDNEYS AND URETERS: There is an obstructing stone in the left renal pelvis at the junction of the ureter. This measures 5 x 8 mm. There is also a 6 x 12 mm stone in the lower pole of the left kidney. There is moderate hydronephrosis and perinephric stranding. The previous study showed a larger stone in the renal pelvis VASCULATURE: Unremarkable. No aortic aneurysm. No aortic atherosclerotic calcification or mural plaque present. BOWEL: Unremarkable. No obstruction. No gross mural thickening. APPENDIX: Unremarkable. Normal appendix. PERITONEUM: Unremarkable. No free fluid. No free air. LYMPH NODES: Unremarkable. No enlarged lymph nodes. BLADDER: Unremarkable. REPRODUCTIVE: Unremarkable. BONES: No acute fracture. OTHER FINDINGS: None. IMPRESSION: There is an obstructing stone in the left renal pelvis at the junction of the ureter. This measures 5 x 8 mm. There is also a 6 x 12 mm stone in the lower pole of the left kidney. There is moderate hydronephrosis and perinephric stranding.
[2018-07-15 17:09] LABS: PH,URINE 5.5 (4.7-8.0); URINE BILIRUBIN NEGATIVE (NEGATIVE); URINE BLOOD NEGATIVE (NEGATIVE); URINE GLUCOSE (UA) NEGATIVE (NEGATIVE); URINE LEUKOCYTE ESTERASE NEGATIVE Leu/uL (NEGATIVE); URINE PROTEIN 30 mg/dL (<30 mg/dL); URINE UROBILINOGEN 0.2 E.U./dL (<1 E.U./dL)
[2018-07-15 17:11] LABS: URINE APPEARANCE CLEAR (CLEAR); URINE COLOR YELLOW (YELLOW)
[2018-07-15] MEDS: Morphine 2 mg/ml ISec IVP PRN (20:00)
[2018-07-15 21:05] VITALS: BMI 30.7
[2018-07-15] MEDS ORDERED: Pneumococcal 23-Valent Vaccine IM ONE (22:00)
[2018-07-15] MEDS ORDERED: Influenza Vaccine 60 mcg/0.5 mL SYR (4YR UP) IM ONE (22:00)
[2018-07-15] MEDS ORDERED: guaiFENesin 100 mg/5 ml Syrup UD PO PRN (23:18)
--- NOTE | 2018-07-16 01:37 | HP ---
HISTORY OF PRESENT ILLNESS: The patient is a 63-year-old man with multiple medical comorbidities including recurrent nephrolithiasis s/p ureteral stent who presented with a 1 day history of sudden onset left flank pain. He was in his usual state of health when he spontaneously developed a sharp left-sided flank pain associated with nausea. He denied fevers, chills, rigors, hematuria or any GI symptoms. Due to his history of multiple renal calculi, he opted for ED evaluation. In the ED he was afebrile, hemodynamically stable and with largely unremarkable laboratory studies. A CT of the abdomen and pelvis confirmed an obstructing left kidney stone with moderate hydronephrosis and perinephric stranding. He was subsequently admitted for management of intractable pain and urological evaluation. PAST MEDICAL HISTORY: As per HPI, also Afib, hypertension, hyperlipidemia, non-insulin dependent diabetes mellitus, GERD, history of ventricular tachycardia s/p AICD/PPM, history of renal cell carcinoma s/p cryoablation s/p left partial nephrectomy and history of prostate cancer s/p radiation therapy s/p hormonal therapy. PAST SURGICAL HISTORY: Left partial nephrectomy and AICD/PPM implantation. ALLERGIES: Penicillin. MEDICATIONS: Bisoprolol/HCTZ 10/6.25 mg p.o. daily, HCTZ 25 mg p.o. daily, Lisinopril 40 mg p.o. daily, Protonix 40 mg p.o. daily, Metformin 500 mg p.o. b.i.d., Lipitor 10 mg p.o. daily and Eliquis 5 mg p.o. b.i.d. FAMILY HISTORY: Noncontributory. SOCIAL HISTORY: The patient denies any history of smoking or illicit drug abuse. He reports social alcohol use. REVIEW OF SYSTEMS: A 12-point review of systems is negative except as per HPI. PHYSICAL EXAMINATION: VITAL SIGNS: Temperature 98.2, pulse 65, blood pressure 137/81, respiratory rate 80, and oxygen saturation 100% on room air. GENERAL: Nontoxic man, sitting up in bed, in moderate distress secondary to left flank pain. HEENT: PERRL. EOMI. No scleral icterus. No conjunctival pallor. NECK: Supple with full range of motion. No JVD. No bruits. LUNGS: Clear to auscultation. CARDIOVASCULAR: Regular rate and rhythm. Normal S1 and S2. Grade II/ VAISHNAVI to LLSB. ABDOMEN: Normoactive bowel sounds, soft and nondistended. Left flank tenderness to percussion is noted. EXTREMITIES: No edema. NEUROLOGIC: Awake, alert and oriented x 3. No focal motor deficits. LABORATORY DATA: WBC 11.6 with 89% neutrophils, hemoglobin 13, hematocrit 38, and platelets 192. Sodium 142, potassium 3.8, chloride 101, bicarb 31, BUN 28, creatinine 1.1, and glucose 189. IMAGING STUDIES: CT of the abdomen and pelvis without contrast demonstrated an obstructing stone to the left renal pelvis measuring 5 x 8 mm with moderate hydronephrosis and perinephric stranding. ASSESSMENT: The patient is a 63-year-old man with multiple medical comorbidities including recurrent nephrolithiasis who presented with a 1 day history of sudden onset of left flank pain and was admitted for management of intractable pain secondary to a recurrent left-sided obstructing renal calculus. PLAN: 1. Recurrent nephrolithiasis. CT imaging reviewed. The patient's urologist (Dr. Wolfe) is away on vacation so we will consult Dr. Palomino for further evaluation and recommendations. Continue Morphine 2 mg IV q. 3 hours p.r.n pain. We will start Flomax 0.4 mg p.o. daily. 2. AFib, rate controlled. Resume Eliquis 5 mg p.o. b.i.d. 3. Hypertension. Blood pressure controlled. Resume HCTZ 25 mg p.o. daily and Lisinopril 40 mg p.o. daily. 4. Type 2 diabetes mellitus. Resume Metformin 500 mg p.o. b.i.d.. 5. Hyperlipidemia. Resume Lipitor 10 mg p.o. daily. 6. GERD. Resume Protonix 40 mg p.o. daily. 7. History of ventricular tachycardia s/p AICD. 8. History of prostate cancer s/p radiation therapy s/p hormonal therapy. 9. History of left renal cell carcinoma s/p cryoablation s/p post partial nephrectomy. 10. Prophylaxis. GI prophylaxis not indicated as the patient remains on Protonix. DVT prophylaxis not indicated as the patient remains on Eliquis. CODE STATUS: Full code. Juan Motta MD [facility] # [id number] MARTHA
[2018-07-16] MEDS: Sodium Chloride 0.9% 1,000 ML IV SCH (03:51)
[2018-07-16] MEDS: Morphine 2 mg/ml ISec IVP PRN ×2 (05:42→20:09)
[2018-07-16 08:00] LABS: HEMOGLOBIN 11.5 g/dL (14.0-18.0); MEAN CORPUSCULAR HEMOGLOBIN 29.3 pg (25.0-35.0); MEAN CORPUSCULAR HGB CONC 33.6 g/dl (31.0-37.0); MEAN PLATELET VOLUME 10.1 fl (7.0-11.0); RBC 3.93 10^6/uL (3.5-6.1); RED CELL DISTRIBUTION WIDTH 13.2 % (11.5-14.5); WHITE BLOOD COUNT 10.1 10^3/uL (4.5-11.0)
[2018-07-16 08:15] LABS: BLOOD UREA NITROGEN 25 mg/dL (7-21); GFR NON-AFRICAN AMERICAN 55
[2018-07-16] MEDS: Pantoprazole 40 mg EC Tab PO SCH (09:29)
--- NOTE | 2018-07-16 11:45 | PN ---
DATE: 07/16/2018 SUBJECTIVE: The patient is a 63-year-old white male who presented to the emergency room with abdominal pain and was diagnosed with a nephrolithiasis. He will be seen by Dr. Palomino at approximately 1 o'clock this afternoon and may or may not be taken to the OR. There have been no acute events overnight. PHYSICAL EXAMINATION: VITAL SIGNS: Temperature of 98, pulse rate of 65, blood pressure 140/88, respiratory rate of 20, O2 saturation of 99% on room air. HEENT: PERRLA, EOMI. There is no icterus present. NECK: Supple with a full range of motion. No adenopathies or bruits are appreciated. LUNGS: Clear to auscultation and percussion bilaterally. There is a permanent pacemaker in the left upper quadrant in the chest. ABDOMEN: Benign. EXTREMITIES: Show no deformities or edema. NEUROLOGIC: The patient is intact. LABORATORY DATA: WBC of 10.1, hemoglobin and hematocrit of 11.5 and 34.2. Chemistry is normal with the exception of BUN of 25. Random glucose of 137. ASSESSMENT AND PLAN: At this time is nephrolithiasis, hydronephrosis, renal colic on the left, and diabetes. Continue current regimen. We are awaiting consult of Urology. Rodrigo Motta MD
[2018-07-16] MEDS ORDERED: Lidocaine 2% Jelly (Uro-Jet) ONE (15:01)
[2018-07-16] MEDS ORDERED: Iohexol 240 (50 ml) ONE (15:01)
[2018-07-16] MEDS ORDERED: DiphenhydrAMINE 50 mg/ml Inj ONE (16:19)
[2018-07-16] MEDS ORDERED: Propofol 10 mg/ml Inj (20 ML) ONE (16:19)
[2018-07-16] MEDS ORDERED: Gentamicin 80 mg in 0.9% NS 80 MG/100 ML BAG IVPB ONE (16:23)
--- NOTE | 2018-07-16 16:48 | CARD ---
APPROVED REPORT Date of service: 07/16/2018 EKG Measurement Heart [id number] <Conclusion> Electronic ventricular pacemaker
[2018-07-16] MEDS ORDERED: levoFLOXacin 500 mg in D5W 500 MG/100 ML BAG IVPB ONE (18:30)
[2018-07-16] MEDS ORDERED: Magnesium Citrate Oral SOL (300 ml) PO ONE (18:31)
--- NOTE | 2018-07-17 01:51 | CON ---
DATE: 07/15/2018 UROLOGY CONSULTATION REASON FOR CONSULTATION: Renal colic. HISTORY OF PRESENT ILLNESS: Mr. Marvin is a very pleasant gentleman. he had multiple medical problems and he now has a kidney stone. The patient is patient of Dr. Raymon Wolfe and I am covering for Dr. Wolfe. The patient reports that Dr. Wolfe previously started with a 1.6 cm stone, he now has 2 stones, the one that is obstructing his upper ureter that is 8 mm in size and he has one that is about 6 mm in the lower pole of the left kidney. The patient had what he described as intolerable pain from the stent for a couple of months and he did well, he does not want the stent, see below the plan because I think he need the stent, we discussed all the options. The patient at this point is still vomiting. He is nauseous. He is not febrile. PAST MEDICAL HISTORY: Listed on the chart. PAST SURGICAL HISTORY: Listed on the chart. The patient of Dr. Motta, he has multiple medical issues, cardiac disease, and diabetes. REVIEW OF SYSTEMS: Listed above and otherwise noncontributory. SOCIAL HISTORY: He has an aunt, he has a girlfriend. 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 No other significant Urology, social, medical, review of systems, or anything else at all as listed on the chart and is otherwise unremarkable from the urology standpoint. PHYSICAL EXAMINATION: GENERAL: A well-nourished male, currently resting comfortably, but he reports that whenever he is not having the pain that has been, he is in severe pain and feels very sick and wants treatment. LABORATORY DATA: I had a chance to review the labs. I had a chance to review the CT scan. DIAGNOSES: Severe renal colic, nausea, vomiting, flank pain, urolithiasis with two separate stones, but one is an 8 mm obstructing stone. At this point, we discussed the options. The patient is baseline, is on Eliquis. I did discuss the idea of percutaneous nephrostomy tube just to drain the kidney. I discussed whether this is better for the patient since he had so severe pain. But I also explained that it will somewhat risky giving the Eliquis. I also explained at sometime stent is more or less uncomfortable depending on sometimes different sites, different locations. RECOMMENDATIONS: My best recommendation at this point is to place the stent and I told them that will work itself as possible either me or Dr. Wolfe, we help him and try not to keep him with the stent in for . PLAN: 1. Emergently, we are going to go to the OR. 2. We are going to do a cysto, we are going to do a stent, retrograde pyelogram. I then described to the patient that further, he says he had 2 shockwave lithotripsies, but did not work, so we are not going to plan right now, for this we may bring him to the OR to do ureteroscopy with lithotripsy, for now if it is okay with Dr. Motta and the medical team, we are going to hold off the Eliquis. In terms of discharge, if the patient feels better after the stent, we will try at home and do everything as an outpatient. REVIEW OF THE PLAN: 1. Antibiotic. 2. Cysto immediately. 3. Stent insertion. Further plans will follow. Jermaine Palomino MD
[2018-07-17 07:24] LABS: BLOOD UREA NITROGEN 24 mg/dL (7-21); CALCIUM 9.2 mg/dL (8.4-10.5); GFR NON-AFRICAN AMERICAN > 60
[2018-07-17 07:32] LABS: HEMOGLOBIN 11.7 g/dL (14.0-18.0); MEAN CELL VOLUME 86.2 fl (80.0-105.0); MEAN CORPUSCULAR HEMOGLOBIN 28.7 pg (25.0-35.0); MEAN CORPUSCULAR HGB CONC 33.3 g/dl (31.0-37.0); MEAN PLATELET VOLUME 10.4 fl (7.0-11.0); RBC 4.07 10^6/uL (3.5-6.1); WHITE BLOOD COUNT 7.8 10^3/uL (4.5-11.0)
[2018-07-17 08:33] VITALS: PULSE 65; O2SAT 96
--- NOTE | 2018-07-17 10:18 | RAD ---
Date of service: 07/17/2018 HISTORY: urolithiasis COMPARISON: CT abdomen pelvis without contrast performed 07/15/18 FINDINGS: BOWEL: Nonobstructive bowel gas pattern. Moderate constipation. BONES: Osseous demineralization. Degenerative changes. OTHER FINDINGS: Left ureteral stent. No coarse calcification noted along the ureteral stent coarse. IMPRESSION: Left ureteral stent. No coarse calcification noted along the ureteral stent coarse. Moderate constipation.
--- NOTE | 2018-07-17 10:19 | PN ---
SUBJECTIVE: The patient was seen and examined at bedside on the general medical arora. No acute events overnight. He remains afebrile, hemodynamically stable and is doing well s/p left-sided ureteral stent placement. He reports resolution of his renal colic, is tolerating p.o. intake and overall offers no complaints. OBJECTIVE: VITAL SIGNS: Temperature 98.5, pulse 65, blood pressure 117/73, respiratory rate 20 and oxygen saturation 96% on room air. GENERAL: No apparent distress. HEENT: PERRL, EOMI. No scleral icterus. No conjunctival pallor. NECK: No JVD, no bruits. LUNGS: Clear to auscultation. CARDIOVASCULAR: Regular rate and rhythm. Normal S1 and S2. Grade II/ VAISHNAVI to LLSB. ABDOMEN: Normoactive bowel sounds, soft, nontender and nondistended. No flank tenderness. EXTREMITIES: No edema. NEUROLOGIC: Awake, alert and oriented x 3. No focal motor deficits. LABORATORY DATA: WBC 7.8, hemoglobin 11.7, hematocrit 35 and platelets 164. Sodium 139, potassium 3.6, chloride 101, bicarb 31, BUN 24, creatinine 1 and glucose 135. ASSESSMENT: The patient is a 63-year-old man with multiple medical comorbidities including recurrent nephrolithiasis who presented with a 1 day history of left flank pain and was admitted for management of intractable pain secondary to recurrent left- sided obstructing renal calculus who is now s/p cystoscopy with intraureteral stent placement. PLAN: 1. Recurrent nephrolithiasis s/p stent placement. Input from Dr. Palomino noted. The patient is scheduled for lithotripsy on Thursday (07/19/18). Continue with care as per Dr. Palomino. We will reach out to Dr. Palomino to advise if the patient may be discharged or if he is to remain in- house pending his lithotripsy. 2. AFib, rate controlled. Continue Eliquis 5 mg p.o. b.i.d. 3. Hypertension. Blood pressure controlled. Continue HCTZ 25 mg p.o. daily and Lisinopril 40 mg p.o. daily. 4. Type 2 diabetes mellitus. Continue Metformin 500 mg p.o. b.i.d. 5. Hyperlipidemia. Continue Lipitor 10 mg p.o. daily. 6. GERD. Continue Protonix 40 mg p.o. daily. 7. History of ventricular tachycardia s/p AICD. 8. History of prostate cancer s/p radiation therapy s/p hormonal therapy. 9. History of left renal cell carcinoma s/p cryoablation s/p partial nephrectomy. 10. Prophylaxis. GI prophylaxis not indicated as the patient remains on Protonix. DVT prophylaxis not indicated as the patient remains on Eliquis. CODE STATUS: Full code. Juan Motta MD [facility] # [id number] MTDVivian
[2018-07-17] MEDS: Pantoprazole 40 mg EC Tab PO SCH (10:23)
[2018-07-17 14:55] VITALS: BP 115/69; RESP 18; TEMP 99.1
--- NOTE | 2018-07-19 08:21 | OP ---
PROCEDURE DATE: 07/16/2018 PREOPERATIVE DIAGNOSES: Severe renal colic, hydronephrosis, obstructing stones and non-obstructing stones on the left side, hematuria in a patient with multiple medical issues. POSTOPERATIVE DIAGNOSES: Severe renal colic, hydronephrosis, obstructing stones and non-obstructing stones on the left side, hematuria in a patient with multiple medical issues. PROCEDURES: Cystoscopy, a left retrograde pyelogram, insertion of left double J-stent. BLOOD LOSS: Less than 10 mL. SURGEON: Jermaine Palomino MD COMPLICATIONS: There were no complications. At the termination of the procedure, the patient has a double-J stent in good location and deployed well. FINDINGS: 1. Normal anterior urethra. No strictures. 2. Verumontanum is visually occlusive, normal, within limits for a 63-year-old male. 3. There are a lot of stone debris within the urinary bladder. Pictures were taken and saved. I want to mention that the lipoma pictures are little bit dark but you can seen see them, they are put on the chart. 4. Significant amount of hydronephrosis. 5. An obstructing stone at the UPJ junction. There were no complications. INDICATION: See history and physical and consultation. A very pleasant gentleman here with a stone, severe colic. We discussed options. He really does not want a stent, but I think that really that is the best option at this point, and then he says every time nauseous and sick, so we discussed percutaneously. We discussed immediate laser lithotripsy, so this is in my recommendation, my best recommendation is to place the stent, and I explained to him that we will work as best as possible whether it is me or Dr. Wolfe. We will try to get the stent out and ____ as quickly as possible, but in the meantime today, I just want to place a stent. We will wait for the Eliquis to wear out of the body. We will make further plans on Thursday or Thursday or next week. DESCRIPTION OF PROCEDURE: After obtaining informed consent, the patient was placed on the table, routine monitor was placed. Time-out was called to confirm the patient's positioning. The patient was given antibiotic prophylaxis. HE IS ALLERGIC TO PENICILLIN, so we used gentamicin. In this case, we are going to use Levaquin as well. The procedure continued in the following fashion. Time-out was called to confirm the patient and positioning. We introduced the cystoscope. The patient was in the lithotomy position by urethra. Anterior urethra normal, no strictures. On viewing it, it is visually occlusive about 3 cm and within the urinary bladder, we inspected carefully that there are no bladder tumors. We did see a lot a debris and stone material. In fact, after we are doing the procedure, we could see a little debris coming out of the ureteral orifice. I took pictures of it . We did a retrograde pyelogram. Retrograde pyelogram is performed demonstrating ____ wire passed up in the kidney, we confirmed our positioning. With fluoroscopic imaging, multiple images were taken. At this point, we have a wire placed in the upper pole of the kidney, we took a double J-stent in. I tried to put a stent in very far so that very little will be in the bladder because he complained that every time he had irritation and lot of frequency and lot of discomfort, was mostly bladder and stent oriented. So we tried to put in a little bit far just to make sure would not go up too far. We filled out ____ pictures both x-ray criteria and also by gross pictures. The bladder was emptied and cystoscope removed. Rectal exam was performed showed the 20 g prostate that was soft and smooth. The patient tolerated the procedure well without complications. We will make sure that we will report to Dr. Wolfe and one of us will try to treat the patient as quickly as possible in the next week or so. The patient can be discharged to home. ADDENDUM: In addition to the Levaquin, I am going to keep the patient I am going to send the patient home on Flomax, Levaquin, and also we are going to give him some Milk of magnesia, magnesia citrate, and he also complains of no bowel movements for few days. Jermaine Palomino MD
--- NOTE | 2018-07-19 08:26 | PN ---
DATE: 07/16/2018 UROLOGY IMMEDIATE POSTOPERATIVE NOTE See the history and physical, consultation, and operative note. This is an immediate postop note. The patient is stable. Vital signs are noted. The patient is in recovery room. He is status post cystoscopy and stent insertion. Has diagnoses of severe left hydronephrosis, stone disease and hematuria. The patient is now with a stenting, doing well. The plan is to follow up with antibiotics continue and eventually will discharge home with Flomax and antibiotics . Now, we are going to make a treatment after the patient we will try to work with possible. Jermaine Palomino MD
--- NOTE | 2018-07-19 09:49 | DS ---
ADMISSION DIAGNOSIS: Recurrent nephrolithiasis with left-sided hydronephrosis. DISCHARGE DIAGNOSIS: Recurrent nephrolithiasis with left-sided hydronephrosis s/p ureteral stent placement. SECONDARY DIAGNOSES: Atrial fibrillation, hypertension, type 2 diabetes mellitus, hyperlipidemia, GERD, history of ventricular tachycardia s/p AICD, history of prostate cancer s/p radiation therapy s/p hormonal therapy and history of left renal cell carcinoma s/p cryoablation s/p partial nephrectomy. CONSULTATIONS: Dr. Jermaine aPlomino (Urology) IMAGING STUDIES: 1. CT of the abdomen and pelvis without contrast demonstrated an obstructing stone to the left renal pelvis at the junction of the ureter measuring 5 x 8 mm and a 6 x 12 mm stone to the lower pole of the left kidney with moderate hydronephrosis and perinephric stranding. DIAGNOSTIC STUDIES: None. PROCEDURES: 1. Cystoscopy with placement of left pigtail stent. HISTORY OF PRESENT ILLNESS: The patient is a 63-year-old man with multiple medical comorbidities including recurrent nephrolithiasis s/p ureteral stent who presented with a 1 day history of sudden onset left flank pain. He was in his usual state of health when he spontaneously developed a sharp, left-sided flank pain associated with nausea. He denied fevers, chills, rigors, hematuria or any GI symptoms. Due to his history of multiple renal calculi, he opted for ED evaluation. In the ED he was afebrile, hemodynamically stable and with largely unremarkable laboratory studies. A CT of the abdomen and pelvis confirmed an obstructing left kidney stone with moderate hydronephrosis and perinephric stranding. He was subsequently admitted for management of intractable pain and urologic evaluation. HOSPITAL COURSE: Upon admission to the general medical arora he was started on analgesic medications and IV fluid hydration. He was evaluated by Dr. Palomino of Urology who was covering for Dr. Wolfe. The patient was taken to the OR and underwent placement of left-sided ureteral stent. He tolerated the procedure and no postprocedure complications were noted. The remainder of his hospital course was unremarkable and the patient was advised that he will likely require lithotripsy. After arrangements were made for lithotripsy, he was cleared for discharge to home by Dr. Palomino. On hospital day # 3 he was discharged home. CONDITION: Fair, improved. DISPOSITION: Home. DISCHARGE MEDICATIONS: Bisoprolol/HCTZ 10/6.25 mg p.o. daily, HCTZ 25 mg p.o. daily, Lisinopril 40 mg p.o. daily, Protonix 40 mg p.o. daily, Metformin 500 mg p.o. b.i.d., Lipitor 10 mg p.o. daily, Eliquis 5 mg p.o. b.i.d. and Ciprofloxacin 500 mg p.o. b.i.d. (to complete a 7-day course). DISCHARGE INSTRUCTIONS: The patient was advised to adhere to postprocedure instructions as per Dr. Palomino. He was also advised that if he develops any fevers, chills, rigors or recurrence of his symptoms to present to his PMD or to the nearest ED immediately. FOLLOWUP: The patient to follow up with his PMD within 1 week of discharge. The patient to follow up with his urologist as scheduled. Juan Motta MD MTDVivian
--- NOTE | 2018-07-19 10:13 | RAD ---
Date of service: 07/16/2018 PROCEDURE: Fluoroscopy up to 1 hr HISTORY: CYSTO / RETROGRADE PYELOGRAM / STENT INSERTION (LEFT) COMPARISON: TECHNIQUE: 40.7 sec of fluoro time. Cumulative dose 13.07 mGy. 12 images submitted. FINDINGS: The study shows placement of a left ureteral stent IMPRESSION: As above
== END 2018-07-17 17:52 | disposition home or self-care (01) ==
LOC: ED 12:37 → ERH 16:54 → 5RNO 20:26 → INTOOBSV 07-17 08:05 → OBSVTOIN 07-17 08:05
PROVIDERS: ADMIT Internal Medicine; ATTEND Internal Medicine
DX: N13.2 Hydronephrosis with renal and ureteral calculous obstruction (principal); D17.9 Benign lipomatous neoplasm, unspecified; E11.9 Type 2 diabetes mellitus without complications; I10 Essential (primary) hypertension; E78.5 Hyperlipidemia, unspecified; Z85.46 Personal history of malignant neoplasm of prostate; Z95.0 Presence of cardiac pacemaker; I25.2 Old myocardial infarction; I48.91 Unspecified atrial fibrillation; K21.9 Gastro-esophageal reflux disease without esophagitis; Z79.01 Long term (current) use of anticoagulants; Z85.528 Personal history of other malignant neoplasm of kidney; Z90.5 Acquired absence of kidney; Z92.3 Personal history of irradiation; R31.9 Hematuria, unspecified; Z88.0 Allergy status to penicillin
CPT/HCPCS: 36415; 52005; 52332; 74022; 74176; 80048; 80053; 81001; 82948; 85025; 85027; 87086; 93005; 96372; 96374; 96375; 96376; 99285; C1769; C2617; G0378; J1200; J1580; J2001; J2270; J2405; J2704; J7030; J7120; Q9966

== ENCOUNTER 2018-07-19 11:59 | Day surgery (SDC) | payer BC ==
[2018-07-19 10:00] VITALS: BMI 31.5
[2018-07-19] MEDS ORDERED: HYDROmorphone 0.5 mg/0.5 ml ISec IVP PRN (16:10)
[2018-07-19] MEDS ORDERED: Propofol 10 mg/ml Inj (20 ML) ONE (17:10)
[2018-07-19] MEDS ORDERED: Sevoflurane - Inhalation Anesthetic Liq (250 ml) ONE (17:12)
[2018-07-19] MEDS ORDERED: Midazolam 2 MG/2 ML VIAL ONE (17:18)
[2018-07-19] MEDS ORDERED: cefTRIAXone (Rocephin) 1 gm Inj ONE (17:27)
[2018-07-19] MEDS ORDERED: Iohexol 240 (50 ml) ONE (17:27)
[2018-07-19] MEDS ORDERED: Gentamicin 80 mg in 0.9% NS 160 MG/200 ML BAG IVPB ONE (17:32)
[2018-07-19] MEDS ORDERED: HYDROmorphone 0.5 mg/0.5 ml ISec ONE ×2 (18:24→18:46)
[2018-07-19] MEDS ORDERED: HYDROmorphone 1 mg/ml ISec IVP STA (18:58)
[2018-07-19] MEDS ORDERED: HYDROmorphone 1 mg/ml ISec ONE (18:59)
[2018-07-19] MEDS ORDERED: Morphine 2 mg/ml ISec IVP PRN (19:54)
[2018-07-19] MEDS: Sodium Chloride 0.9% 1,000 ML IV SCH ×2 (20:19→20:35)
--- NOTE | 2018-07-20 09:24 | PCM.URO ---
Urology Progress Note - Objective Lab Studies: Reviewed (stent removed) Intake & Output: Intake & Output 07/19/18 07/20/18 07/20/18 18:59 06:59 18:59 Intake Total 0 Balance 0 Weight 220 lb Intake: IV 0 Vital Signs: Vital Signs - 24 hr 07/19/18 07/19/18 07/19/18 12:10 18:10 18:25 Temperature 98.1 F 98.1 F 98.1 F Pulse Rate 70 70 66 Respiratory 18 18 18 Rate Blood Pressure 135/90 143/84 151/88 H O2 Sat by Pulse 100 100 100 Oximetry 07/19/18 07/19/18 07/19/18 18:40 18:55 19:10 Temperature 98.1 F 98.1 F 98.1 F Pulse Rate 65 66 64 Respiratory 17 17 17 Rate Blood Pressure 172/89 H 155/80 H 152/78 H O2 Sat by Pulse 100 100 100 Oximetry 07/19/18 07/19/18 07/20/18 19:55 22:29 06:00 Temperature 99 F 98.1 F Pulse Rate 58 L 65 Respiratory 20 18 Rate Blood Pressure 154/101 H 138/90 144/98 H O2 Sat by Pulse 100 98 Oximetry
--- NOTE | 2018-07-20 10:23 | RAD ---
Date of service: 07/19/2018 PROCEDURE: Fluoroscopy up to 1 hr HISTORY: STENT REMOVAL / RETROGRADE PYELOGRAM / LASER LITHO/STENT INSERT LEFT COMPARISON: TECHNIQUE: 67.7 sec of fluoro time. Cumulative dose 17.89 mGy. Fourteen images were submitted FINDINGS: There is placement of a wire and ureteral scope in the left side. There is a filling defect in the renal pelvis and the lower pole calyx. There is placement of a ureteral stent. IMPRESSION: As above
[2018-07-20 16:30] VITALS: BP 130/89; PULSE 68; RESP 20; TEMP 97.8; O2SAT 100
--- NOTE | 2018-07-21 21:04 | HP ---
DATE OF EXAM: 07/19/2018 UROLOGY ADMISSION HISTORY AND PHYSICAL REASON FOR ADMISSION: An emergency admission secondary to a kidney stone and stent pain. HISTORY OF PRESENT ILLNESS: Mr. Marvin is a very pleasant 63-year-old gentleman. He has a history of kidney stones. We met him last week as an emergency. He previously had Dr. Wolfe who he is going to return to after this is all said and done, but he presented with severe renal colic with a stone obstructing his kidney. He also has a stone in the lower pole and going to replace the stent. He is very worried about flank pain and discomfort. He says the last time he had a stone is for a long time. He wants to get the stent out right away, it is hurting him a lot when he urinates. His nausea and vomiting felt much better with the stent in place since I put it in last week on Thursday, but he says it is still bothering him, every time he urinates it hurts too much, he cannot take the pain, so we brought him today as an emergency add-on schedule for a cystourethroscopy laser lithotripsy, see the plans listed below. PAST MEDICAL AND SURGICAL HISTORY: As both listed on the chart. Others unremarkable. There has been no change since 07/16/2018. REVIEW OF SYSTEMS: Listed as above, noncontributory. SOCIAL HISTORY: He works in [employer]. Otherwise unremarkable. He lives here in [place]. MEDICATIONS: See the chart. He is off the blood thinner since last week. ALLERGIES: NONE. PHYSICAL EXAMINATION GENERAL: A well-developed, well-nourished male in no apparent distress. Currently resting comfortably on a gurney. VITAL SIGNS: Noted. LUNGS: Clear. HEART: S1 and S2. ABDOMEN: Overall soft and nontender. No flank mass. No rebound, no guarding. LABORATORY DATA: His last blood last week. DIAGNOSES: Urolithiasis, hematuria, severe left hydronephrosis, two separate stones, one is 8-mm, 9-mm stone obstructing the left upper ureter and then the other is a left lower pole stone. ASSESSMENT AND PLAN: In summary, he is a very pleasant gentleman with lot of flank pain and discomfort and lot of trauma/anxiety from the previous stent. So he felt better and relieved from nausea, vomiting and pain. He is experiencing a lot of stent discomfort and just is demanding requesting as urgent treatment as possible. So, we brought him to the emergency room today and we are adding him on the schedule. PLAN: As follows; 1. Antibiotic prophylaxis. 2. He is on Cipro at home, but we are going to add extra antibiotics. 3. We are going to bring for ureteroscopy laser lithotripsy, I have made arrangement with the laser nurse to be available. I explained to the patient the plan. I explained that most likely we are just going to be clearing the ureter and that would not at all address the kidney stone. We both had a chance to speak to Dr. Wolfe, as the patient had reported that he had previously had shockwave lithotripsy and apparently a very hard stone that did not actually relieve the obstruction. We need to break the stone enough. So today, we are going to provide laser energy, break the stone, and try to clear the ureter and then further plans will follow. ADDENDUM: See the operative note, see the postoperative note. We were able to do a laser lithotripsy. Actually, we were going to flex the ureteroscope, but the stone went backwards towards the kidney. We broke up the stone that was causing obstruction and left the patient with a stent that was angled and we are actually going to admit the patient for overnight observation given the late hour and so he was admitted as an emergency admission for observation overnight. Further plans will follow. Jermaine Palomino MD
--- NOTE | 2018-07-22 08:52 | PN ---
DATE: 07/20/2018 See the previously dictated note from 07/19/2018. SUBJECTIVE: The patient is resting comfortably. He reports incontinence. Further examination reveals that the stent is basically, the tape is no longer there from the ureteral stent. That may be , but either way, that stent is not in. So, despite the fact that the patient has some pyelovenous backflow and despite the fact that we discussed not removing it for 24 hours at least, even try for 48 hours. At this point, it is not in place. He is incontinent and so, therefore, we pulled it out but basically, at the meatus . See below. Overall, the patient is status post cystoscopy, ureteroscopy, laser lithotripsy. He reports that he has been giving the nurses the urine, but he does not know if he passed any stones or not. I spoke to the nurse and they denied any residual or any stones. PLAN: The stent is removed as the patient feels send him home. We are going him one extra dose of Toradol and then . Jermaine Palomino MD
--- NOTE | 2018-07-22 08:58 | OP ---
PROCEDURE DATE: 07/19/2018 PREOPERATIVE DIAGNOSES: Urolithiasis, hematuria, left ureteral stone, left hydronephrosis, obstructive uropathy, and left flank pain. POSTOPERATIVE DIAGNOSES: Urolithiasis, hematuria, left ureteral stone, left hydronephrosis, obstructive uropathy, and left flank pain. PROCEDURES: Cystoscopy, removal of the left double-J stent, left retrograde pyelogram, left ureteroscopy, left renoscopy, laser lithotripsy of the left ureteral and left renal stone and additional left double-J stent with dangles treatment.. COMPLICATIONS: There were no complications. BLOOD LOSS: Less than 20 mL. FINDINGS: 1. Normal anterior urethra. No strictures. 2. Verumontanum is visually occlusive about 3 cm. 3. The left double-J stent is removed and then a wire is put up to his kidney without difficulty. The stone was identified, seen and lasered . The patient tolerated the procedure without complications, overall. At the termination of the procedure, there was no stones in the ureter. He has a double-J stenting with dangles. I do want to mention also on the retrograde pyelogram at the termination of the procedure when we were just further imaging, there is noted pyelovenous backflow. All within normal limits post procedure. We left the double-J stent with dangles. We are going to try to encourage the patient to keep in for about 24-48 hours. INDICATIONS: See history and physical. This is an urgent/emergent procedure where we put a stent on 07/16/2018. The patient felt much better from a flank pain standpoint and nausea and vomiting standpoint, but he was experiencing a lot of stent discomfort, so he brought into the emergently through the ER today. DESCRIPTION OF PROCEDURE: After obtaining informed consent, the patient was placed on the table. Routine monitors were placed. Time-out was called to confirm the patient and positioning. Antibiotic prophylaxis, the patient is on Cipro, we will give an extra dose. We introduced the cystoscope via urethra, we identified the old stent and removed it from the tip of the penis. We put a wire up to the kidney without difficulty. I now went adjacent to the wire with a rigid ureteroscope so I can see the stone, but limit at this point and it is really to the kidney. At this point, we put a second wire in and with a flexible ureteroscope and then we provided laser energy. We started with 120 joules with a frequency of 3 on the stone. Multiple pictures were taken and we were able to feel the whole nicely. The stone was pretty hard to take and a maximum amount of energy and I am going slowly and I am right on the stone. It does break, but it was a lot of work. We keep working meticulously. Repeated fluoro imaging in the upper pole and then in the pelvis and then towards the lower pole. We chased the stone. We did not go up to the stone in the lower pole of kidney and that probably and that will be treated in its entirety. At this point just wanted to breakup any obstructing stone. We break into pieces. At the termination of the procedure, we did a retrograde pyelogram through the flexible ureteroscope, I did see pyelovenous backflow which we expected while we are doing the procedure. All within normal limits. Although patient tolerated the double-J stenting, the patient tolerated the procedure without complication. Jermaine Palomino MD
--- NOTE | 2018-07-22 08:58 | PN ---
DATE: 07/19/2018 See the history and physical and operative note. The patient in the recovery room, in stable condition, having some moderate amount of pain. We will continue to monitor the patient closely. The patient is status post renoscopy, ureteroscopy, and laser lithotripsy and these are all within normal limits. Given the patient's pain, we are going to actually admit him to the hospital and then further plans will follow. Jermaine Palomino MD
== END 2018-07-20 18:02 | disposition home or self-care (01) ==
LOC: SDS 11:59 → 5RSO 20:00 → SDS 07-20 18:02
PROVIDERS: ATTEND Urology
DX: N13.2 Hydronephrosis with renal and ureteral calculous obstruction (principal); R31.9 Hematuria, unspecified
CPT/HCPCS: 52356; C1758; C1769 ×2; C2617; J0696; J1170 ×2; J1580; J1885 ×2; J2001; J2250; J2270; J2405; J2704; J2765; J3010; J7120; Q9966